=== PATIENT | female | born 1950 | race Caucasian/White ===

== ENCOUNTER 2018-11-26 09:18 | Outpatient (CLI) | payer MEDICARE ==
--- NOTE | 2018-11-26 15:03 | NM ---
NUCLEAR MEDICINE BONE SCAN: History: Pain. Low back pain. Fall. Comparison: None available. FINDINGS: Whole body imaging was performed after the intravenous administration of 31.8 mCi Technetium 99M Sest amibi. There is severe S-shaped scoliosis of the thoracolumbar spine. There is increased uptake within the p osterior left sided facets at T10-T12, corresponding to the compressive side of the scoliosis. There is abnormally increased radiotracer uptake within the left fibular head and neck. Both kidneys and the urinary bladder are visualized. There are degenerative changes left midfoot. IMPRESSION: 1. No evidence of osseous metastatic disease. 2. Increased uptake in the posterior elements of the facet joints in the lower thoracic spine due to compression changes from the severe scoliosis. 3. Interval increased uptake left fibular head and neck concerning for fracture. Recommend radiograph ic evaluation. POS: [facility]ASITY
== END 2018-11-26 09:19 | disposition home or self-care (01) ==
LOC: NM 09:18
PROVIDERS: ATTEND Neurological Surgery
DX: M54.5 Low back pain (principal); R07.81 Pleurodynia; M41.9 Scoliosis, unspecified
CPT/HCPCS: 78306; A9503